=== PATIENT | female | born 1960 | race American Indian/Alaskan Native ===

== ENCOUNTER 2017-01-29 23:18 | Inpatient (IN) | payer OTHER ==
[2017-01-30 00:31] LABS: Basophils % (Auto) 0.2 % (0.0-1.8); Eosinophils % (Auto) 0.5 % (0.0-4.3); Hematocrit 42.8 % (30.3-42.9); Hemoglobin 14.2 gm/dl (10.1-14.3); Mean Corpuscular HGB Conc 33 % (30-34); Mean Corpuscular Hemoglobin 31 pg (28-32); Mean Corpuscular Volume 92 fl (79-97); Platelet Count 201 K/mm3 (140-440); Red Blood Count 4.65 M/mm3 (3.65-5.03); Red Cell Distribution Width 14.4 % (13.2-15.2); White Blood Count 9.8 K/mm3 (4.5-11.0)
[2017-01-30 01:35] LABS: Alanine Aminotransferase 56 units/L (7-56); Albumin 4.2 g/dL (3.9-5); Albumin/Globulin Ratio 1.4 %; Alkaline Phosphatase 144 units/L (35-129); Anion Gap 22 mmol/L; BUN/Creatinine Ratio 23.33; Blood Urea Nitrogen 14 mg/dL (7-17); Calcium 9.4 mg/dL (8.4-10.2); Carbon Dioxide 21 mmol/L (22-30); Chloride 100.6 mmol/L (98-107); Glucose 105 mg/dL (65-100); Potassium 4.3 mmol/L (3.6-5.0); Sodium 139 mmol/L (137-145); Total Protein 7.1 g/dL (6.3-8.2)
[2017-01-30 01:55] LABS: Lipase 2991 units/L (13-60)
[2017-01-30 02:24] LABS: Bilirubin,Urine NEG (Negative); Blood,Urine NEG (Negative); Ketones,Urine NEG (Negative); Leukocyte Esterase,Urine NEG (Negative); Mucus,Urine FEW /HPF; Nitrite,Urine NEG (Negative); Protein,Urine <15 mg/dL mg/dL (Negative); Urobilinogen,Urine < 2.0 mg/dL (<2.0); WBC,Urine < 1.0 /HPF (0.0-6.0)
[2017-01-30] MEDS ORDERED: MORPHINE IV ONE (04:34)
[2017-01-30] MEDS ORDERED: NACL 0.9% 1000 ML 1,000 ML IV ONE (04:34)
--- NOTE | 2017-01-30 04:35 | Emergency Department Report ---
ED General Adult HPI - General Chief complaint: Abdominal Pain Stated complaint: ABD PAIN Time Seen by Provider: 01/30/17 04:29 Source: patient, EMS (ems notes not available at time of chart dictation), RN notes reviewed Mode of arrival: Stretcher Limitations: No Limitations - History of Present Illness Initial comments: This is a 56-year-old female. She is previously unknown to me. She does not have a primary care doctor. She presents to the ER with epigastric and right upper quadrant abdominal pain, the pain started at about 940 last night. The pain radiates to her shoulder. There is no chest pain. There is no shortness of breath. There is no hematemesis. There is no bright red blood per rectum. There is no leg pain. There is no leg swelling. No recent trips greater than 4 hours. No recent hospital admissions. Patient consumes alcohol a few times a week. She denies recreational ingestions. -: Gradual Location: abdomen Radiation: back Consistency: intermittent Improves with: none Worsens with: none Associated Symptoms: denies: confusion, chest pain, cough, diaphoresis, fever/ chills, headaches, loss of appetite, malaise, shortness of breath, syncope, weakness - Related Data Allergies Allergy/AdvReac Type Severity Reaction Status Date / Time No Known Allergies Allergy Unverified 01/30/17 00:01 ED Review of Systems ROS: Stated complaint: ABD PAIN Other details as noted in HPI Constitutional: denies: fever Eyes: denies: vision change ENT: denies: epistaxis Respiratory: denies: cough Cardiovascular: denies: chest pain Gastrointestinal: abdominal pain Genitourinary: denies: dysuria Musculoskeletal: denies: back pain Skin: denies: rash Neurological: denies: headache, weakness Psychiatric: denies: anxiety ED Past Medical Hx - Past Medical History Previous Medical History?: No - Surgical History Past Surgical History?: No - Social History Smoking Status: Current Every Day Smoker Substance Use Type: Alcohol ED Physical Exam - General Limitations: No Limitations General appearance: alert, in no apparent distress - Head Head exam: Present: atraumatic, normocephalic - Eye Eye exam: Present: normal appearance, EOMI. Absent: nystagmus - ENT ENT exam: Present: normal exam, normal orophraynx, mucous membranes moist, normal external ear exam - Neck Neck exam: Present: normal inspection, full ROM. Absent: tenderness, meningismus - Respiratory Respiratory exam: Present: normal lung sounds bilaterally. Absent: respiratory distress, wheezes, rales, rhonchi, stridor, chest wall tenderness, accessory muscle use, decreased breath sounds, prolonged expiratory - Cardiovascular Cardiovascular Exam: Present: regular rate, normal rhythm, normal heart sounds. Absent: bradycardia, tachycardia, irregular rhythm, systolic murmur, diastolic murmur, rubs, gallop - GI/Abdominal GI/Abdominal exam: Present: soft, normal bowel sounds. Absent: distended, tenderness, guarding, rebound, rigid, pulsatile mass - Extremities Exam Extremities exam: Present: normal inspection, full ROM, normal capillary refill. Absent: tenderness, pedal edema, joint swelling, calf tenderness - Back Exam Back exam: Present: normal inspection, full ROM. Absent: tenderness, CVA tenderness (R), CVA tenderness (L), muscle spasm, paraspinal tenderness, vertebral tenderness - Neurological Exam Neurological exam: Present: alert, oriented X3, normal gait, other (Extraocular movements intact. Tongue midline. No facial droop. Facial sensation intact to light touch in the V1, V2, V3 distribution bilaterally. 5 and 5 strength in 4 extremities.. Sensation is intact to light touch in 4 extremities.). Absent : motor sensory deficit - Psychiatric Psychiatric exam: Present: normal affect, normal mood - Skin Skin exam: Present: warm, dry, intact, normal color. Absent: rash ED Course Vital Signs 01/30/17 01/30/17 01/30/17 00:01 04:41 04:45 Temperature 97.6 F Pulse Rate 67 Respiratory 18 Rate Blood Pressure 122/61 138/73 130/73 Blood Pressure [Left] O2 Sat by Pulse 100 98 96 Oximetry 01/30/17 01/30/17 04:54 08:47 Temperature Pulse Rate 62 Respiratory 16 16 Rate Blood Pressure Blood Pressure 116/60 [Left] O2 Sat by Pulse 97 98 Oximetry - Reevaluation(s) Reevaluation #1: 01/30/17 05:04 Differential diagnosis: GERD, gastritis, reflux, pancreatitis, acute coronary syndrome Assessment and plan: 56-year-old female with epigastric and right upper quadrant pain, afebrile, reassuring vital signs, benign abdominal examination, no pulmonary embolus or DVT risks factors, low risk by well's criteria, low risk by ISSA score, low risk by heart score, negative troponin, markedly elevated lipase, 2900, most likely new onset pancreatitis. She is currently sober at this time. She will be given IV fluids and pain medication. A CT scan of the abdomen and pelvis is pending. Case is discussed with the Hospital physician, Dr. Perez, who accepts the patient to his service for further evaluation and management of new onset pancreatitis and the patient has normal liver function tests, she currently has no right upper quadrant tenderness, she has a negative Clement sign, and she is remarkably well-appearing. At this point in time, I do not bleed her clinical presentation is consistent with cholecystitis. 01/31/17 05:50 ED Medical Decision Making - Lab Data Result diagrams: 01/30/17 00:13 01/30/17 05:05 Vital Signs 01/30/17 01/30/17 01/30/17 00:01 04:41 04:45 Temperature 97.6 F Pulse Rate 67 Respiratory 18 Rate Blood Pressure 122/61 138/73 130/73 O2 Sat by Pulse 100 98 96 Oximetry 01/30/17 04:54 Temperature Pulse Rate Respiratory 16 Rate Blood Pressure O2 Sat by Pulse 97 Oximetry Lab Results 01/30/17 01/30/17 01/30/17 Range/Units 00:13 00:13 01:48 WBC 9.8 (4.5-11.0) K/mm3 RBC 4.65 (3.65-5.03) M/mm3 Hgb 14.2 (10.1-14.3) gm/dl Hct 42.8 (30.3-42.9) % MCV 92 (79-97) fl MCH 31 (28-32) pg MCHC 33 (30-34) % RDW 14.4 (13.2-15.2) % Plt Count 201 (140-440) K/mm3 Lymph % (Auto) 11.4 L (13.4-35.0) % [place] % (Auto) 8.6 H (0.0-7.3) % Eos % (Auto) 0.5 (0.0-4.3) % Baso % (Auto) 0.2 (0.0-1.8) % Lymph # 1.1 L (1.2-5.4) K/mm3 [place] # 0.8 (0.0-0.8) K/mm3 Eos # 0.1 (0.0-0.4) K/mm3 Baso # 0.0 (0.0-0.1) K/mm3 Seg Neutrophils % 79.3 H (40.0-70.0) % Seg Neutrophils # 7.8 H (1.8-7.7) K/mm3 Sodium 139 (137-145) mmol/L Potassium 4.3 (3.6-5.0) mmol/L Chloride 100.6 (98-107) mmol/L Carbon Dioxide 21 L (22-30) mmol/L Anion Gap 22 mmol/L BUN 14 (7-17) mg/dL Creatinine 0.6 L (0.7-1.2) mg/dL Estimated GFR > 60 ml/min BUN/Creatinine Ratio 23.33 % Glucose 105 H (65-100) mg/dL Calcium 9.4 (8.4-10.2) mg/dL Total Bilirubin 0.50 (0.1-1.2) mg/dL AST 142 H (5-40) units/L ALT 56 (7-56) units/L Alkaline Phosphatase 144 H (35-129) units/L Total Protein 7.1 (6.3-8.2) g/dL Albumin 4.2 (3.9-5) g/dL Albumin/Globulin Ratio 1.4 % Lipase 2991 H (13-60) units/L Urine Color Yellow (Yellow) Urine Turbidity Clear (Clear) Urine pH 5.0 (5.0-7.0) Ur Specific [place] 1.010 (1.003-1.030) Urine Protein <15 mg/dl (Negative) mg/dL Urine Glucose (UA) Neg (Negative) mg/dL Urine Ketones Neg (Negative) mg/dL Urine Blood Neg (Negative) Urine Nitrite Neg (Negative) Urine Bilirubin Neg (Negative) Urine Urobilinogen < 2.0 (<2.0) mg/dL Ur Leukocyte Esterase Neg (Negative) Urine WBC (Auto) < 1.0 (0.0-6.0) /HPF Urine RBC (Auto) 2.0 (0.0-6.0) /HPF U Epithel Cells (Auto) 1.0 (0-13.0) /HPF Urine Mucus Few /HPF - EKG Data -: EKG Interpreted by Nd EKG shows normal: sinus rhythm, axis, intervals, QRS complexes - EKG Data When compared to previous EKG there are: no significant change Interpretation: no acute changes 01/30/17 05:06 Normal sinus, 66 bpm, low voltage, not morphologically consistent with STEMI, normal axis, normal intervals, appears unchanged compared to prior EKG from August 2012 - Radiology Data Radiology results: pending interpreted by me: I will defer to the inpatient team to follow up on the CT scan. Critical care attestation.: If time is entered above; I have spent that time in minutes in the direct care of this critically ill patient, excluding procedure time. ED Disposition Clinical Impression: Pancreatitis Disposition: OP ADMITTED IP TO THIS HOSP Is pt being admited?: Yes Condition: Good
[2017-01-30 05:39] LABS: Anion Gap 16 mmol/L; BUN/Creatinine Ratio 21.66; Blood Urea Nitrogen 13 mg/dL (7-17); Calcium 9.5 mg/dL (8.4-10.2); Carbon Dioxide 24 mmol/L (22-30); Chloride 100.3 mmol/L (98-107); Glucose 201 mg/dL (65-100); Potassium 4.6 mmol/L (3.6-5.0); Sodium 136 mmol/L (137-145)
--- NOTE | 2017-01-30 06:46 | Cat Scan Report ---
FINAL REPORT EXAM: CT ABDOMEN PELVIS W CON HISTORY: abd pain TECHNIQUE: CT abdomen and pelvis performed. Images extend from diaphragm to pubic symphysis. 100 cc Omnipaque 350 IV was administered. No oral contrast was administered. Coronal and sagittal reformatted images were obtained. PRIORS: None. FINDINGS: The visualized aspects of the lung bases are clear. There is gallbladder wall thickening and cholelithiasis. There is likely a stone in the cystic duct. I cannot exclude acute cholecystitis. Low-density liver lesion measures about 3.5 cm. It is likely a cyst. The visualized spleen, pancreas, adrenal glands and kidneys demonstrate no significant abnormality. There is no abdominal aortic aneurysm. There is no evidence of intestinal obstruction. The appendix is normal. There is diverticulosis throughout the colon. There is no evidence of acute diverticulitis. There is no free intraperitoneal air. There are no abnormal fluid collections seen. The bladder is unremarkable. There is a fibroid uterus. There is a left adnexal cystic mass seen measuring about 3.2 cm. IMPRESSION: Cholelithiasis and gallbladder wall thickening. Probable stone in the cystic duct. Acute cholecystitis is not excluded. 3.5 cm hepatic cysts. Diverticulosis. No diverticulitis seen. 3.2 cm left adnexal cystic mass. This can be correlated with ultrasound. Fibroid uterus.
--- NOTE | 2017-01-30 07:17 | Admit Criteria Form ---
Admission Criteria Documentation: PANCREATITIS Clinical Indications for Admission to Inpatient Care (Place 'X' for any and all applicable criteria): Admission is indicated for 1 or more of the following (1)(2)(3)(4): [X ]I. Acute pancreatitis[A] as indicated by 2 or MORE of the following: [X ]a) Abdominal pain (eg, epigastric, left upper quadrant) [ X]b) Serum amylase or serum lipase greater than 3 times the upper limit of normal [ ]c) Characteristic findings from abdominal imaging (eg, pancreatic inflammation, pancreatic necrosis, peripancreatic fluid collection)[B] [ ]II. Pancreatitis (acute or chronic ) requiring inpatient care as indicated by 1 or more of the following [ ]a) Inability to maintain oral hydration Hypoxemia [ ]b) Evidence of infection (eg, fever, peripancreatic abscess) [ ]c) Severe pain requiring acute inpatient management [ ]d) Hemodynamic instability [ ]e) Hypoxemia [ ]f) Acute renal failure [ ]g) Severe electrolyte abnormalities Extended stay beyond goal length of stay may be needed for (1)(11) [ ]a) Severe acute pancreatitis (10)(19) [ ]b) Persistent symptoms, ascites, or pleural effusion [ ]c) Abdominal compartment syndrome (10) [ ]d) Late complications [ ]e) Gallstones in gallbladder [ ]f) Acute renal failure (27) The original [employer] content created by [employer] has been revised. The portions of the content which have been revised are identified through the use of italic text or in bold,and [facility] has neither reviewed nor approved the modified material.All other unmodified content is copyright [facility]. Please see references footnoted in the original [facility] edition 2016 Admission Criteria Met: Yes
[2017-01-30] MEDS ORDERED: DULCOLAX PR PRN (07:40)
[2017-01-30] MEDS ORDERED: REGLAN IV PRN (07:40)
[2017-01-30] MEDS ORDERED: ZOFRAN IV PRN (07:40)
[2017-01-30] MEDS ORDERED: MILK OF MAGNESIA PO PRN (07:40)
[2017-01-30] MEDS ORDERED: TYLENOL PO PRN (07:40)
--- NOTE | 2017-01-30 13:56 | History and Physical Report ---
History of Present Illness Date of examination: 01/30/17 Date of admission: 01/30/17 07:40 Chief complaint: EPIGASTRIC PAIN History of present illness: Patient is a 56-year-old female with history of alcohol use, tobacco abuse, and chronic suprapubic pain who presents to the hospital with complaining of epigastric pain and right upper quadrant pain which she rates a 10 over 10 in intensity at this worse. Aggravated by food AND elevated by rest. She reports that he started at 940 last night after having a beer. She states right upper quadrant pain radiates to her right shoulder area. She denies any chest pain denies any shortness of breath, nausea vomiting or diarrhea. ROS Constitutional: No fever, fatigue or weight loss. Skin: No rash. Eyes: No recent vision problems or eye pain. ENT: No congestion, ear pain, or sore throat. Endocrine: No thyroid problems. Cardiovascular: No chest pain. Respiratory: No cough, shortness of breath, congestion, or wheezing. Gastrointestinal: Reports abdominal pain but no nausea, vomiting, or diarrhea. Genitourinary: No dysuria. Musculoskeletal: No joint swelling. Neurologic: No seizures. Hematologic: No unusual bruising or bleeding. Psychiatric: No psychiatric problems, hallucinations or depression. All other systems reviewed and otherwise negative. Past History Past Medical History: other Past Surgical History: No surgical history Social history: smoking, alcohol abuse Family history: no significant family history Medications and Allergies Allergies Allergy/AdvReac Type Severity Reaction Status Date / Time No Known Allergies Allergy Unverified 01/30/17 00:01 Active Meds: Active Medications Acetaminophen (Tylenol) 650 mg PO Q4H PRN PRN Reason: Pain MILD(1-3)/Fever >100.5/NAVA Bisacodyl (Dulcolax) 10 mg [place] QDAY PRN PRN Reason: Constipation unrelieved by MOM Sodium Chloride (Nacl 0.9% 1000 Ml) 1,000 mls @ 125 mls/hr IV DIRECT AYLA Magnesium Hydroxide (Milk Of Magnesia) 30 ml PO Q4H PRN PRN Reason: Constipation Metoclopramide HCl (Reglan) 10 mg IV Q6H PRN PRN Reason: Nausea And Vomiting Morphine Sulfate (Morphine) 2 mg IV Q4H PRN PRN Reason: Pain, Moderate (4-6) Ondansetron HCl (Zofran) 4 mg IV Q8H PRN PRN Reason: N/V unrelieved by Reglan Exam - Physical Exam Narrative exam: VITAL SIGNS: Reviewed. GENERAL: The patient appeared well nourished and normally developed. Vital signs as documented. HEAD: No signs of head trauma. EYES: Pupils are equal. Extraocular motions intact. EARS: Hearing grossly intact. MOUTH: Oropharynx is normal. NECK: No adenopathy, no JVD. CHEST: Chest with clear breath sounds bilaterally. No wheezes, rales, or rhonchi. CARDIAC: Regular rate and rhythm. S1 and S2, without murmurs, gallops, or rubs. VASCULAR: No Edema. Peripheral pulses normal and equal in all extremities. ABDOMEN: Soft, tender in the epigastric area and also right upper quadrant. no sign of distention. No rebound or guarding, and no masses palpated. Bowel Sounds normal. MUSCULOSKELETAL: Good range of motion of all major joints. Extremities without clubbing, cyanosis or edema. NEUROLOGIC EXAM: Alert and oriented x 3. No focal sensory or strength deficits. Speech normal. Follows commands. PSYCHIATRIC: Mood normal. SKIN: No rash or lesions. - Constitutional Vitals: Temp Pulse Resp BP Pulse Ox 98.1 F 60 18 119/63 96 01/30/17 09:46 01/30/17 09:46 01/30/17 09:46 01/30/17 09:46 01/30/17 09:46 Results - Labs CBC & Chem 7: 01/30/17 00:13 01/30/17 05:05 Labs: Laboratory Last Values WBC 9.8 K/mm3 (4.5-11.0) 01/30/17 00:13 RBC 4.65 M/mm3 (3.65-5.03) 01/30/17 00:13 Hgb 14.2 gm/dl (10.1-14.3) 01/30/17 00:13 Hct 42.8 % (30.3-42.9) 01/30/17 00:13 MCV 92 fl (79-97) 01/30/17 00:13 MCH 31 pg (28-32) 01/30/17 00:13 MCHC 33 % (30-34) 01/30/17 00:13 RDW 14.4 % (13.2-15.2) 01/30/17 00:13 Plt Count 201 K/mm3 (140-440) 01/30/17 00:13 Lymph % (Auto) 11.4 % (13.4-35.0) L 01/30/17 00:13 [place] % (Auto) 8.6 % (0.0-7.3) H 01/30/17 00:13 Eos % (Auto) 0.5 % (0.0-4.3) 01/30/17 00:13 Baso % (Auto) 0.2 % (0.0-1.8) 01/30/17 00:13 Lymph # 1.1 K/mm3 (1.2-5.4) L 01/30/17 00:13 [place] # 0.8 K/mm3 (0.0-0.8) 01/30/17 00:13 Eos # 0.1 K/mm3 (0.0-0.4) 01/30/17 00:13 Baso # 0.0 K/mm3 (0.0-0.1) 01/30/17 00:13 Seg Neutrophils % 79.3 % (40.0-70.0) H 01/30/17 00:13 Seg Neutrophils # 7.8 K/mm3 (1.8-7.7) H 01/30/17 00:13 Sodium 136 mmol/L (137-145) L 01/30/17 05:05 Potassium 4.6 mmol/L (3.6-5.0) 01/30/17 05:05 Chloride 100.3 mmol/L (98-107) 01/30/17 05:05 Carbon Dioxide 24 mmol/L (22-30) 01/30/17 05:05 Anion Gap 16 mmol/L 01/30/17 05:05 BUN 13 mg/dL (7-17) 01/30/17 05:05 Creatinine 0.6 mg/dL (0.7-1.2) L 01/30/17 05:05 Estimated GFR > 60 ml/min 01/30/17 05:05 BUN/Creatinine Ratio 21.66 % 01/30/17 05:05 Glucose 201 mg/dL (65-100) H 01/30/17 05:05 Calcium 9.5 mg/dL (8.4-10.2) 01/30/17 05:05 Total Bilirubin 0.50 mg/dL (0.1-1.2) 01/30/17 00:13 AST 142 units/L (5-40) H 01/30/17 00:13 ALT 56 units/L (7-56) 01/30/17 00:13 Alkaline Phosphatase 144 units/L (35-129) H 01/30/17 00:13 Troponin T < 0.010 ng/mL (0.00-0.029) 01/30/17 07:33 Total Protein 7.1 g/dL (6.3-8.2) 01/30/17 00:13 Albumin 4.2 g/dL (3.9-5) 01/30/17 00:13 Albumin/Globulin Ratio 1.4 % 01/30/17 00:13 Amylase 794 units/L (27-131) H 01/30/17 07:33 Lipase 2991 units/L (13-60) H 01/30/17 00:13 Urine Color Yellow (Yellow) 01/30/17 01:48 Urine Turbidity Clear (Clear) 01/30/17 01:48 Urine pH 5.0 (5.0-7.0) 01/30/17 01:48 Ur Specific [place] 1.010 (1.003-1.030) 01/30/17 01:48 Urine Protein <15 mg/dl mg/dL (Negative) 01/30/17 01:48 Urine Glucose (UA) Neg mg/dL (Negative) 01/30/17 01:48 Urine Ketones Neg mg/dL (Negative) 01/30/17 01:48 Urine Blood Neg (Negative) 01/30/17 01:48 Urine Nitrite Neg (Negative) 01/30/17 01:48 Urine Bilirubin Neg (Negative) 01/30/17 01:48 Urine Urobilinogen < 2.0 mg/dL (<2.0) 01/30/17 01:48 Ur Leukocyte Esterase Neg (Negative) 01/30/17 01:48 Urine WBC (Auto) < 1.0 /HPF (0.0-6.0) 01/30/17 01:48 Urine RBC (Auto) 2.0 /HPF (0.0-6.0) 01/30/17 01:48 U Epithel Cells (Auto) 1.0 /HPF (0-13.0) 01/30/17 01:48 Urine Mucus Few /HPF 01/30/17 01:48 - Imaging and Cardiology CT scan - abdomen: image reviewed (cholecystitis,) Assessment and Plan Assessment and plan: Patient is a 56-year-old female with history of alcohol use, tobacco abuse, and chronic suprapubic pain who presents to the hospital with complaining of epigastric pain and right upper quadrant pain which she rates a 10 over 10 in intensity at this worse. Aggravated by food AND elevated by rest. She reports that he started at 940 last night after having a beer. She states right upper quadrant pain radiates to her right shoulder area. She denies any chest pain denies any shortness of breath, nausea vomiting or diarrhea. * Acute pancreatitis likely secondary to gallstone * Acute cholecystitis * Tobacco abuse * Alcohol abuse * Elevated transaminitis consistent with alcohol abuse Plan * Admit patient to MedSurg, supportive care with IV fluids, pain control * Extensive medication with patient on the tobacco quit tobacco and alcohol use 15 minutes time spent on counseling with provision for sources * Surgical consult * We'll obtain MRCP, HIDA scan * CIWA protocol with banana back coverage * No indication for antibiotics at this time patient was not febrile. * DVT GI prophylaxis * Discussed with patient and family about plan of care they all verbalized understanding Advance Directives: Yes Plan of care discussed with patient/family: Yes
[2017-01-30] MEDS: NACL 0.9% 1000 ML 1,000 ML IV SCH (14:28)
[2017-01-30] MEDS: MORPHINE IV PRN (14:28)
--- NOTE | 2017-01-30 15:17 | Magnetic Resonance Report ---
MR ABDOMEN MRCP History: Gallstone pancreatitis, abdominal pain. Findings: Compared to the CT abdomen pelvis with contrast performed the same day. The MRCP images demonstrate multiple gallstones within the gallbladder measuring up to 1 cm. There is no evidence for gallbladder distention. Mild gallbladder wall thickening is again noted. The CBD is moderately dilated measuring 8 mm in diameter. No discrete common bile duct stone was appreciated on MR. This could represent a distal common bile duct stricture. The pancreatic duct is normal. The liver is normal size and contour. A 3.3 cm rounded fluid signal lesion is identified in the anterior right hepatic lobe. The previous CT describes this as a hepatic cyst. MR characteristics are certainly not consistent with a simple cyst. This could represent a cyst filled with proteinaceous debris. An early hepatic abscess is difficult to exclude. The pancreas, spleen, kidneys, adrenal glands and visualized bowel loops are unremarkable. The aorta is normal caliber. Impression: Cholelithiasis. Dilated common bile duct measuring 8 mm but no obvious choledocholithiasis is detected. This may represent a nonvisualized common bile duct stone or distal common bile duct stricture. Slightly complex 3.3 cm collection in the anterior right hepatic lobe. I suppose this could represent a complex cyst. A hepatic abscess should also be considered. Please correlate with the patient's clinical presentation. No MR or CT findings of pancreatitis are identified.
[2017-01-30] MEDS ORDERED: ANCEF/NS 1 GM/50 ML 1 GM/50 ML BAG IV SCH (16:00)
[2017-01-31] MEDS: NACL 0.9% 1000 ML 1,000 ML IV SCH (02:57)
[2017-01-31] MEDS: ANCEF/NS 1 GM/50 ML 1 GM/50 ML BAG IV SCH ×3 (02:58→18:13)
--- NOTE | 2017-01-31 03:50 | Progress Note ---
Subjective Narrative: widened common BD , will Have GI for ? ERCP talked to Dr Luke office .Case discussed with Pt, Objective Vital Signs - 12hr 01/30/17 01/31/17 22:00 00:35 Temperature 98.7 F Pulse Rate [ 59 L Apical] Pulse Rate [ 72 Right Radial] Respiratory 16 16 Rate Blood Pressure 136/64 [Left Arm] O2 Sat by Pulse 98 100 Oximetry - Labs 01/30/17 00:13 01/30/17 05:05
[2017-01-31 06:32] LABS: Hematocrit 41.6 % (30.3-42.9); Hemoglobin 13.6 gm/dl (10.1-14.3); Mean Corpuscular HGB Conc 33 % (30-34); Mean Corpuscular Hemoglobin 30 pg (28-32); Mean Corpuscular Volume 92 fl (79-97); Platelet Count 168 K/mm3 (140-440); Red Blood Count 4.54 M/mm3 (3.65-5.03); Red Cell Distribution Width 14.4 % (13.2-15.2); White Blood Count 4.2 K/mm3 (4.5-11.0)
[2017-01-31 07:37] LABS: Alanine Aminotransferase 40 units/L (7-56); Albumin 3.5 g/dL (3.9-5); Albumin/Globulin Ratio 1.6 %; Alkaline Phosphatase 107 units/L (35-129); Anion Gap 16 mmol/L; BUN/Creatinine Ratio 12.85; Blood Urea Nitrogen 9 mg/dL (7-17); Calcium 8.9 mg/dL (8.4-10.2); Carbon Dioxide 25 mmol/L (22-30); Chloride 108.3 mmol/L (98-107); Glucose 98 mg/dL (65-100); Lipase 47 units/L (13-60); Potassium 4.6 mmol/L (3.6-5.0); Sodium 145 mmol/L (137-145); Total Protein 5.7 g/dL (6.3-8.2)
[2017-01-31 09:19] LABS: Blastocytes % (Manual) 0 %; Diff Status Complete; Platelet Estimate Cons; RBC Morphology Normal
--- NOTE | 2017-01-31 10:00 | Consultation ---
HISTORY OF PRESENT ILLNESS: This patient was admitted by Dr. Daly because of abdominal pain and nausea, but no vomiting of 1 day duration. She had symptoms like this in the last year every now and then. Last night, the pain was very bad, she was just seen in the Emergency Room, and she was admitted by Dr. Daly. She told me that the pain was localized in the mid upper right abdomen with nausea, but no vomiting. She was waked up with the pain last night. She was seen in the ER and apparently had a CBC that showed a white count of 9.8, hemoglobin was 14, the platelets were 201, potassium is 4.6, and the BUN was 14, creatinine was normal. Total bilirubin was normal, lipase a little bit elevated at 2991. Amylase is 794. She had a CAT scan that showed evidence of multiple stones in the gallbladder with some edema in the area, ?stone in the cystic duct area, acute cholecystitis was not excluded. The patient never had surgery before. She had a tubal ligation, however. She has 3 children. She is a smoker. PHYSICAL EXAMINATION: GENERAL: At this point, showed a well-preserved black female. She is in no distress. She had an ____ going on. HEAD AND NECK: Negative. BREASTS: Symmetrical. CHEST: Essentially clear. HEART: Sounds normal to me. ABDOMEN: Protuberant, soft, benign. Very minimal tenderness in the right upper quadrant. EXTREMITIES: Showed no evidence of any edema. IMPRESSION: Gallbladder disease with stones with edema. I believe ____ we will try to have an MRCP and eventually she may need surgery. I then talked with the patient as to need for the operation. We have to wait for the radiological studies and then go from there. JOB# [id number] RAY/MIHIR
--- NOTE | 2017-01-31 12:23 | Event Note ---
Date: 01/31/17 Consult noted. Patient off the floor for surgery. Chart reviewed. Recommend CCY with IOC. No ERCP at this time as LFTS have normalized and MRCP did not reveal CBD stone. Sujata Rowan, ACNP-BC
[2017-01-31] MEDS ORDERED: ZEMURON IV ONE (12:27)
[2017-01-31] MEDS ORDERED: DIPRIVAN 10 MG/ML IV ONE (12:27)
[2017-01-31] MEDS ORDERED: XYLOCAINE MPF 2% ONE (12:27)
[2017-01-31] MEDS ORDERED: DECADRON ONE (12:29)
[2017-01-31] MEDS ORDERED: ZOFRAN ONE (12:29)
[2017-01-31] MEDS ORDERED: DILAUDID ONE (12:30)
[2017-01-31] MEDS ORDERED: MARCAINE 0.5% 30 ML INFILTRATI ONE (12:35)
[2017-01-31] MEDS ORDERED: VERSED IV PRN (12:49)
--- NOTE | 2017-01-31 12:49 | Anesthesia Consultation ---
Anesthesia Consult and Med Hx Date of service: 01/31/17 - Airway Anesthetic Teeth Evaluation: Poor ROM Head & Neck: Adequate Mental/Hyoid Distance: Adequate Mallampati Class: Class III Intubation Access Assessment: Good - Pulmonary Exam CTA: Yes - Cardiac Exam Cardiac Exam: RRR - Pre-Operative Health Status ASA Pre-Surgery Classification: ASA2 Proposed Anesthetic Plan: General - Pulmonary Hx Smoking: Yes Hx Pneumonia: No - Other Systems Hx Cancer: No - Additional Comments Anesthesia Medical History Comments: No previous anesthetic. Poor dentition with multiple loosr teeth.
[2017-01-31] MEDS ORDERED: PEPCID IV NR (13:00)
[2017-01-31] MEDS ORDERED: NACL 0.9% 1000 ML 1,000 ML IV SCH (13:00)
[2017-01-31] MEDS ORDERED: NACL 0.9% 1000 ML 1,000 ML ONE (13:15)
[2017-01-31] MEDS ORDERED: MARCAINE 0.5% INFILTRATI ONE (13:45)
[2017-01-31] MEDS ORDERED: NACL 0.9% IR ONE (13:45)
[2017-01-31] MEDS ORDERED: ATIVAN IV PRN ×3 (13:51)
--- NOTE | 2017-01-31 13:57 | Progress Note ---
Assessment and Plan Assessment and plan: 56-year-old male with past medical history of alcohol abuse, tobacco abuse who presents with right upper quadrant pain. 1. Acute pancreatitis Likely multifactorial, due to alcohol abuse and gallstones Continue IV fluids, continue pain medications continue antiemetics, will advance her diet slowly after she had her surgery, she is for cholecystectomy today 2. Acute cholecystitis For laparoscopic cholecystectomy today 3. Alcohol abuse, concern for alcohol withdrawal CIWA protocol, continue IV fluids for the time being and dextrose containing drip, has been counseled 4. Mild to moderate malnutrition Dietitian consult, encourage healthy balanced diet 5. Tobacco abuse Patient has been counseled, nicotine patch ordered History Interval history: Right upper quad projects quadrant abdominal pain is somewhat improved, pain is dull about 4 out of 10 and radiates to her right shoulder and her scapula, was exacerbated by eating and has improved since she's not eating. Denies nausea, relieved by pain medications and denies fevers denies chills Hospitalist Physical - Physical exam Narrative exam: General: Patient appears well in no distress HEENT: MMM, EOMI cardiac: S1-S2 heard lungs: clear to auscultation, abdomen: Right upper quadrant tenderness, Clement's sign positive extremities: no edema clubbing or cyanosis Skin: no rash or lesion Neuro: no focal deficit Psych: appropriate behavior and mood, cognition intact - Constitutional Vitals: Temp Pulse Resp BP Pulse Ox 97.8 F 62 20 153/97 99 01/31/17 12:56 01/31/17 12:56 01/31/17 12:56 01/31/17 12:56 01/31/17 12:56 Results - Labs CBC & Chem 7: 01/31/17 05:34 01/31/17 05:34 Labs: Laboratory Last Values WBC 4.2 K/mm3 (4.5-11.0) L 01/31/17 05:34 RBC 4.54 M/mm3 (3.65-5.03) 01/31/17 05:34 Hgb 13.6 gm/dl (10.1-14.3) 01/31/17 05:34 Hct 41.6 % (30.3-42.9) 01/31/17 05:34 MCV 92 fl (79-97) 01/31/17 05:34 MCH 30 pg (28-32) 01/31/17 05:34 MCHC 33 % (30-34) 01/31/17 05:34 RDW 14.4 % (13.2-15.2) 01/31/17 05:34 Plt Count 168 K/mm3 (140-440) 01/31/17 05:34 Lymph % (Auto) 11.4 % (13.4-35.0) L 01/30/17 00:13 Grant % (Auto) 8.6 % (0.0-7.3) H 01/30/17 00:13 Eos % (Auto) 0.5 % (0.0-4.3) 01/30/17 00:13 Baso % (Auto) 0.2 % (0.0-1.8) 01/30/17 00:13 Lymph # 1.1 K/mm3 (1.2-5.4) L 01/30/17 00:13 Grant # 0.8 K/mm3 (0.0-0.8) 01/30/17 00:13 Eos # 0.1 K/mm3 (0.0-0.4) 01/30/17 00:13 Baso # 0.0 K/mm3 (0.0-0.1) 01/30/17 00:13 Add Manual Diff Complete 01/31/17 05:34 Total Counted 100 01/31/17 05:34 Seg Neutrophils % Package Handler 01/31/17 05:34 Seg Neuts % (Manual) 33.0 % (40.0-70.0) L 01/31/17 05:34 Band Neutrophils % 0 % 01/31/17 05:34 Lymphocytes % (Manual) 46.0 % (13.4-35.0) H 01/31/17 05:34 Reactive Lymphs % (Man) 0 % 01/31/17 05:34 Monocytes % (Manual) 11.0 % (0.0-7.3) H 01/31/17 05:34 Eosinophils % (Manual) 9.0 % (0.0-4.3) H 01/31/17 05:34 Basophils % (Manual) 1.0 % (0.0-1.8) 01/31/17 05:34 Metamyelocytes % 0 % 01/31/17 05:34 Myelocytes % 0 % 01/31/17 05:34 Promyelocytes % 0 % 01/31/17 05:34 Blast Cells % 0 % 01/31/17 05:34 Nucleated RBC % Not Reportable 01/31/17 05:34 Seg Neutrophils # 7.8 K/mm3 (1.8-7.7) H 01/30/17 00:13 Seg Neutrophils # Man 1.4 K/mm3 (1.8-7.7) L 01/31/17 05:34 Band Neutrophils # 0.0 K/mm3 01/31/17 05:34 Lymphocytes # (Manual) 1.9 K/mm3 (1.2-5.4) 01/31/17 05:34 Abs React Lymphs (Man) 0.0 K/mm3 01/31/17 05:34 Monocytes # (Manual) 0.5 K/mm3 (0.0-0.8) 01/31/17 05:34 Eosinophils # (Manual) 0.4 K/mm3 (0.0-0.4) 01/31/17 05:34 Basophils # (Manual) 0.0 K/mm3 (0.0-0.1) 01/31/17 05:34 Metamyelocytes # 0.0 K/mm3 01/31/17 05:34 Myelocytes # 0.0 K/mm3 01/31/17 05:34 Promyelocytes # 0.0 K/mm3 01/31/17 05:34 Blast Cells # 0.0 K/mm3 01/31/17 05:34 WBC Morphology Not Reportable 01/31/17 05:34 Hypersegmented Neuts Not Reportable 01/31/17 05:34 Hyposegmented Neuts Not Reportable 01/31/17 05:34 Hypogranular Neuts Not Reportable 01/31/17 05:34 Smudge Cells Not Reportable 01/31/17 05:34 Toxic Granulation Not Reportable 01/31/17 05:34 Toxic Vacuolation Not Reportable 01/31/17 05:34 Dohle Bodies Not Reportable 01/31/17 05:34 Pelger-Huet Anomaly Not Reportable 01/31/17 05:34 Doyle Rods Not Reportable 01/31/17 05:34 Platelet Estimate Cons 01/31/17 05:34 Clumped Platelets Not Reportable 01/31/17 05:34 Plt Clumps, EDTA Not Reportable 01/31/17 05:34 Large Platelets Not Reportable 01/31/17 05:34 Giant Platelets Not Reportable 01/31/17 05:34 Platelet Satelliting Not Reportable 01/31/17 05:34 Plt Morphology Comment Not Reportable 01/31/17 05:34 RBC Morphology Normal 01/31/17 05:34 Dimorphic RBCs Not Reportable 01/31/17 05:34 Polychromasia Not Reportable 01/31/17 05:34 Hypochromasia Not Reportable 01/31/17 05:34 Poikilocytosis Not Reportable 01/31/17 05:34 Anisocytosis Not Reportable 01/31/17 05:34 Microcytosis Not Reportable 01/31/17 05:34 Macrocytosis Not Reportable 01/31/17 05:34 Spherocytes Not Reportable 01/31/17 05:34 Pappenheimer Bodies Not Reportable 01/31/17 05:34 Sickle Cells Not Reportable 01/31/17 05:34 Target Cells Not Reportable 01/31/17 05:34 Tear Drop Cells Not Reportable 01/31/17 05:34 Ovalocytes Not Reportable 01/31/17 05:34 Helmet Cells Not Reportable 01/31/17 05:34 Cohen-Ellport Bodies Not Reportable 01/31/17 05:34 Couderay Rings Not Reportable 01/31/17 05:34 Moe Cells Not Reportable 01/31/17 05:34 Bite Cells Not Reportable 01/31/17 05:34 Crenated Cell Not Reportable 01/31/17 05:34 Elliptocytes Not Reportable 01/31/17 05:34 Acanthocytes (Spur) Not Reportable 01/31/17 05:34 Rouleaux Not Reportable 01/31/17 05:34 Hemoglobin C Crystals Not Reportable 01/31/17 05:34 Schistocytes Not Reportable 01/31/17 05:34 Malaria parasites Not Reportable 01/31/17 05:34 Sudarshan Bodies Not Reportable 01/31/17 05:34 Hem Pathologist Commnt No 01/31/17 05:34 Sodium 145 mmol/L (137-145) D 01/31/17 05:34 Potassium 4.6 mmol/L (3.6-5.0) 01/31/17 05:34 Chloride 108.3 mmol/L (98-107) H 01/31/17 05:34 Carbon Dioxide 25 mmol/L (22-30) 01/31/17 05:34 Anion Gap 16 mmol/L 01/31/17 05:34 BUN 9 mg/dL (7-17) 01/31/17 05:34 Creatinine 0.7 mg/dL (0.7-1.2) 01/31/17 05:34 Estimated GFR > 60 ml/min 01/31/17 05:34 BUN/Creatinine Ratio 12.85 % 01/31/17 05:34 Glucose 98 mg/dL (65-100) 01/31/17 05:34 Calcium 8.9 mg/dL (8.4-10.2) 01/31/17 05:34 Total Bilirubin 0.40 mg/dL (0.1-1.2) 01/31/17 05:34 AST 37 units/L (5-40) 01/31/17 05:34 ALT 40 units/L (7-56) 01/31/17 05:34 Alkaline Phosphatase 107 units/L (35-129) 01/31/17 05:34 Troponin T < 0.010 ng/mL (0.00-0.029) 01/30/17 07:33 Total Protein 5.7 g/dL (6.3-8.2) L 01/31/17 05:34 Albumin 3.5 g/dL (3.9-5) L 01/31/17 05:34 Albumin/Globulin Ratio 1.6 % 01/31/17 05:34 Amylase 794 units/L (27-131) H 01/30/17 07:33 Lipase 47 units/L (13-60) 01/31/17 05:34 Urine Color Yellow (Yellow) 01/30/17 01:48 Urine Turbidity Clear (Clear) 01/30/17 01:48 Urine pH 5.0 (5.0-7.0) 01/30/17 01:48 Ur Specific [employer] 1.010 (1.003-1.030) 01/30/17 01:48 Urine Protein <15 mg/dl mg/dL (Negative) 01/30/17 01:48 Urine Glucose (UA) Neg mg/dL (Negative) 01/30/17 01:48 Urine Ketones Neg mg/dL (Negative) 01/30/17 01:48 Urine Blood Neg (Negative) 01/30/17 01:48 Urine Nitrite Neg (Negative) 01/30/17 01:48 Urine Bilirubin Neg (Negative) 01/30/17 01:48 Urine Urobilinogen < 2.0 mg/dL (<2.0) 01/30/17 01:48 Ur Leukocyte Esterase Neg (Negative) 01/30/17 01:48 Urine WBC (Auto) < 1.0 /HPF (0.0-6.0) 01/30/17 01:48 Urine RBC (Auto) 2.0 /HPF (0.0-6.0) 01/30/17 01:48 U Epithel Cells (Auto) 1.0 /HPF (0-13.0) 01/30/17 01:48 Urine Mucus Few /HPF 01/30/17 01:48 - Imaging and Cardiology MRI - abdomen: image reviewed (CBD dilatation only to 8 mm, no stones seen)
[2017-01-31] MEDS ORDERED: D5/0.45NS 1,000 ML IV SCH (14:00)
[2017-01-31] MEDS: DILAUDID IV PRN ×4 (14:50→15:25)
--- NOTE | 2017-01-31 15:27 | Operative Report ---
PREOPERATIVE DIAGNOSIS: Gallbladder disease with stones. POSTOPERATIVE DIAGNOSIS: Gallbladder disease with stones? elevated liver enzymes. SURGERY: Laparoscopic cholecystectomy. REGULATORY AFFAIRS SPEC: Naun Carr M.D. FINDINGS: The patient had severely inflamed gallbladder with edema. The cystic duct is about 3 to 4 mm wide. The common bile duct was fairly good size, but would stay away from it. The rest of examination did not reveal anything specific. The patient has some adhesions between the liver and the diaphragm. ____. ANESTHESIA: ____. BLOOD LOSS: Minimal. DESCRIPTION OF PROCEDURE: With the patient in supine position, prepped and draped in usual fashion. I made a small incision in the right mid upper abdomen. With the Veress needle, I was able to do CO2 a pressure of 15 for which #5 trocar was inserted and then a camera was inserted. With use of the camera, three more trocars were inserted, one 5 in the infraumbilical area, another 5 in the mid right abdomen and 10 in the mid upper epigastrium. We had good hemostasis. Then, the gallbladder was seen, it was edematous. This was grasped with the grasper from its fundus and infundibular area. They were able to dissect all the adhesions between the gallbladder and the cystic duct. These were identified easily along with the cystic artery. These were endoclipped x4 and transected. Then, the gallbladder was removed in toto using electrocautery. We were very much satisfied had good hemostasis. Then, the gallbladder was removed via the epigastric trocar area with an EndoCatch. The area was then irrigated with sterile normal saline. We had good hemostasis. After sustaining good hemostasis, all the trocars were removed, closing the fascia with the use of 0 Vicryl [id number] x2 and the skin with 4-0 Vicryl and Steri-Strips. We did leave two small incisions to be closed with the Steri-Strips only. The bandages were applied. The patient was then transferred to the recovery room in good condition. We will plan to keep her overnight to check her liver profile tomorrow and then may be home tomorrow. JOB# [id number] RAY/MIHIR
[2017-01-31] MEDS ORDERED: HABITROL TD SCH (16:00)
[2017-01-31] MEDS: MORPHINE IV PRN ×2 (16:51→21:30)
[2017-02-01] MEDS: ANCEF/NS 1 GM/50 ML 1 GM/50 ML BAG IV SCH ×2 (02:00→09:20)
[2017-02-01 07:48] VITALS: BP 133/74
[2017-02-01] MEDS: MORPHINE IV PRN (08:07)
[2017-02-01 09:47] LABS: Alanine Aminotransferase 81 units/L (7-56); Albumin 3.9 g/dL (3.9-5); Albumin/Globulin Ratio 1.8 %; Alkaline Phosphatase 106 units/L (35-129); Total Protein 6.1 g/dL (6.3-8.2)
[2017-02-01 09:56] LABS: Bilirubin,Direct < 0.2 mg/dL (0-0.2)
[2017-02-01] MEDS ORDERED: VITAMIN B-1 PO SCH (10:00)
[2017-02-01] MEDS ORDERED: FOLVITE PO SCH (10:00)
--- NOTE | 2017-02-01 10:22 | Progress Note ---
Subjective Patient Reports: Positive: feels better, pain is less Narrative: Appreciate Dr Luke input , talked to PT , she is doing fine , to see me in 10 days no driving , extra st Tylenol for pain , low fat diet . Objective Vital Signs - 12hr 02/01/17 02/01/17 02/01/17 00:00 04:00 07:44 Temperature 98.0 F 97.9 F 98.7 F Pulse Rate [ 65 Apical] Pulse Rate [ 81 64 Left Radial] Respiratory 18 18 20 Rate Respiratory Rate [Medial Abdomen] Blood Pressure 125/73 118/66 133/74 [Left Arm] O2 Sat by Pulse 95 97 95 Oximetry 02/01/17 02/01/17 02/01/17 08:07 08:26 08:37 Temperature Pulse Rate [ Apical] Pulse Rate [ Left Radial] Respiratory 20 20 Rate Respiratory Rate [Medial Abdomen] Blood Pressure [Left Arm] O2 Sat by Pulse 96 Oximetry 02/01/17 09:52 Temperature Pulse Rate [ Apical] Pulse Rate [ Left Radial] Respiratory Rate Respiratory 20 Rate [Medial Abdomen] Blood Pressure [Left Arm] O2 Sat by Pulse Oximetry - Labs 01/31/17 05:34 01/31/17 05:34 Diabetes panel 02/01/17 Range/Units 03:24 AST 145 H (5-40) units/L ALT 81 H (7-56) units/L Alkaline Phosphatase 106 (35-129) units/L Total Protein 6.1 L (6.3-8.2) g/dL Albumin 3.9 (3.9-5) g/dL Calcium panel 02/01/17 Range/Units 03:24 Albumin 3.9 (3.9-5) g/dL Adrenal panel 02/01/17 Range/Units 03:24 Total Bilirubin 0.30 (0.1-1.2) mg/dL AST 145 H (5-40) units/L ALT 81 H (7-56) units/L Alkaline Phosphatase 106 (35-129) units/L Total Protein 6.1 L (6.3-8.2) g/dL Albumin 3.9 (3.9-5) g/dL
--- NOTE | 2017-02-01 11:32 | Discharge Summary ---
Providers - Providers Date of Admission: 01/30/17 07:40 Attending physician: BARBER DIETRICH MD 01/31/17 10:25 Consult to Physician [CONS] Routine Consulting Provider: SHELLIE ABDULLAHI Reason For Exam: CBD obstruction Place consult to:: DR. ABDULLAHI Notified:: DR. ABDULLAHI Phone number called:: [phone] Time called:: 10:34 Comment:: DR. WARNER CALL CONSULT Primary care physician: MILLINERY DESIGNER Hospitalization Condition: Good Hospital course: 56-year-old male with past medical history of alcohol abuse, tobacco abuse who presents with right upper quadrant pain. She was found to have acute pancreatitis, etiology was most likely due to combined effect of alcohol abuse and gallstones. She was treated with IV fluids pain meds and antiemetics, supportive care. She was seen by surgery and found to have some cholecystitis, she then went on to have a laparoscopic cholecystectomy. Her pain resolved, she was put on a diet and was advanced. She was also counseled about alcohol abuse, she verbalized understanding and states that she will quit drinking on her abdomen. She was encouraged to improve her diet, a balanced diet with less alcohol. She also counseled about tobacco abuse and given nicotine patches. Discharge diagnoses 1. Acute pancreatitis 2. Acute cholecystitis 3. Alcohol abuse, 4. Mild to moderate malnutrition 5. Tobacco abuse Disposition: DISCHARGED TO HOME OR SELFCARE Time spent for discharge: 35 minutes Core Measure Documentation - Palliative Care Palliative Care/ Comfort Measures: Not Applicable - Core Measures Any of the following diagnoses?: none Exam - Constitutional Vitals: Temp Pulse Resp BP Pulse Ox 98.7 F 65 20 133/74 96 02/01/17 07:44 02/01/17 07:44 02/01/17 09:52 02/01/17 07:44 02/01/17 08:26 General appearance: Present: no acute distress, well-nourished - EENT Eyes: Present: PERRL ENT: hearing intact, clear oral mucosa - Neck Neck: Present: supple, normal ROM - Respiratory Respiratory effort: normal Respiratory: bilateral: CTA - Cardiovascular Heart Sounds: Present: S1 & S2. Absent: rub, click - Extremities Extremities: pulses symmetrical, No edema Peripheral Pulses: within normal limits - Abdominal General gastrointestinal: Present: soft, non-tender, non-distended, normal bowel sounds Female genitourinary: Present: normal - Integumentary Integumentary: Present: clear, warm, dry - Musculoskeletal Musculoskeletal: gait normal, strength equal bilaterally - Psychiatric Psychiatric: appropriate mood/affect, intact judgment & insight - Neurologic Neurologic: CNII-XII intact, moves all extremities Plan Follow up with: PRIMARY CARE, [Primary Care Provider] - 7 Days Prescriptions: Folic Acid 0.4 mg PO QDAY #30 tablet Nicotine [Habitrol] 14 mg TD DAILY #30 patch Ondansetron [Zofran Odt] 4 mg PO Q8H PRN #15 tab.rapdis PRN Reason: Nausea oxyCODONE /ACETAMINOPHEN [Percocet 5/325] 1 tab PO Q6HR PRN #30 tablet PRN Reason: Pain Thiamine [Vitamin B-1] 100 mg PO QDAY #30 tablet
== END 2017-02-01 12:30 | disposition home or self-care (01) | DRG 417 ==
LOC: EDSEX → ED 23:18 → 3A 01-30 07:40 → 2B-SURG 01-31 15:24
PROVIDERS: ADMIT Internal Medicine; ATTEND Internal Medicine
PROC: 0FT44ZZ Resection of Gallbladder, Percutaneous Endoscopic Approach (ICD-10-PCS; principal; 2017-01-31)
DX: K81.0 Acute cholecystitis (principal); K85.20 Alcohol induced acute pancreatitis without necrosis or infection; K85.10 Biliary acute pancreatitis without necrosis or infection; E44.0 Moderate protein-calorie malnutrition; F10.10 Alcohol abuse, uncomplicated; F17.210 Nicotine dependence, cigarettes, uncomplicated; R74.0 Nonspecific elevation of levels of transaminase and lactic acid dehydrogenase [LDH]; Z98.51 Tubal ligation status; Z68.27 Body mass index [BMI] 27.0-27.9, adult; Z71.6 Tobacco abuse counseling; Z71.41 Alcohol abuse counseling and surveillance of alcoholic
CPT/HCPCS: 36415; 74177; 74181; 80048; 80053; 80074; 81001; 82150; 83690; 84484; 85007; 85025; 88304; 93005; 93010; 96374; 99406; J0690; J1100; J1170; J2250; J2270; J2405; J2704; J7030; Q9967